=== PATIENT | male | born 1955 | race Caucasian/White ===

== ENCOUNTER 2021-06-12 21:47 | Emergency (ER) | payer BC, SELFPAY ==
--- NOTE | 2021-06-12 21:57 | DI.CT.S_ITS ---
PROCEDURE: CT HEAD/BRAIN WO CON INDICATIONS: head injury TECHNIQUE: Noncontrast 4.5 mm thick angled axial sections acquired from the foramen magnum to the vertex, with coronal and sagittal reformats. For radiation dose reduction, the following was used: automated exposure control, adjustment of mA and/or kV according to patient size. COMPARISON: None. FINDINGS: Image quality: Excellent. CSF spaces: Basal cisterns are patent. No extra-axial fluid collections. Ventricles are age-appropriate in size and shape. Brain: No midline shift. No intracranial masses or hemorrhage. Holloway-white matter interface is normal. Skull and face: Small right frontal scalp edema/hematoma. Calvarium and visualized facial bones are intact, without suspicious lesions. Sinuses: Visualized sinuses and mastoids are clear. IMPRESSION: Small right frontal scalp hematoma. No skull fracture. No acute intracranial abnormality. Dictated by: Jacek Bishop M.D. on 06/12/2021 at 22:19 Approved by: Jacek Bishop M.D. on 06/12/2021 at 22:20
[2021-06-12 21:58] VITALS: BP 139/85; PULSE 71; RESP 16; TEMP 36.4; O2SAT 98; BMI 33.5
--- NOTE | 2021-06-12 22:05 | DI.CT.S_ITS ---
PROCEDURE: CT CERVICAL SPINE WO CON INDICATIONS: fall TECHNIQUE: Noncontrast 3 mm thick sections acquired from the skull base to the T4 level. Sagittal and coronal reformats were then constructed. For radiation dose reduction, the following was used: automated exposure control, adjustment of mA and/or kV according to patient size. COMPARISON: None. FINDINGS: Image quality: Excellent. Bones: No acute fractures or dislocations. Visualized superior ribs are intact. Mild multilevel degenerative changes. Soft tissues: Prevertebral soft tissues are normal in thickness. No paravertebral hematomas. No apical pneumothoraces. IMPRESSION: Acute cervical spine fracture or subluxation. Dictated by: Jacek Bishop M.D. on 06/12/2021 at 22:21 Approved by: Jacek Bishop M.D. on 06/12/2021 at 22:23
[2021-06-12] MEDS: TET,DIPH,PERTUSS(ACELL),VAC/PF 0.5 ML SYRINGE IM (22:16)
--- NOTE | 2021-06-12 22:26 | ED_ITS ---
HPI - Head Injury General Chief complaint: Head Injury Stated complaint: FALL HIT HEAD HEAD INJURY Time Seen by Provider: 06/12/21 22:01 Source: patient Mode of arrival: Ambulatory History of Present Illness HPI Narrative: 65-year-old male nonsmoker and occasional drinker presents with his in the chief complaint of a ground level fall resulting in a large laceration on his forehead. They were at home when he had had a few drinks when he tripped and fell forward striking his head on the fireplace. He had no loss of consciousness and endorses full recall of the event. He has had no nausea or vomiting and is acting appropriate and at baseline per his . He denies any neck pain or other injury. He takes no blood thinners. Related Data Home Medications Medication Instructions Recorded Confirmed No Known Home Medications 06/12/21 06/12/21 Allergies Allergy/AdvReac Type Severity Reaction Status Date / Time No Known Drug Allergies Allergy Verified 06/12/21 22:04 Review of Systems Review of Systems Narrative: GENERAL: Denies chills, fatigue, malaise, fever, sweats. HEENT: Denies sinus pain, ear pain, sore throat, difficulty swallowing, dizziness. RESPIRATORY: Denies dyspnea, cough, wheezing, hemoptysis, sputum. CARDIOVASCULAR: Denies chest pain, palpitations, orthopnea, edema, GASTROINTESTINAL: Denies nausea, vomiting, abdominal pain, diarrhea, constipation, melena. : Denies dysuria, frequency, incontinence, hematuria, urinary retention. MUSCULOSKELETAL: denies weakness, joint pain, or bony pain SKIN: See HPI NEUROLOGIC: Denies weakness, headache, numbness, change in speech, confusion, seizures, incoordination. PSYCHIATRIC: No concerning psychosocial issues. 12 point review of systems is negative except for those stated above Patient History Social History Smoking Status: Never smoker Smoking Status: Never smoker alcohol intake frequency: 3 or more drinks per day Substance Use Type: does not use Exam Narrative Exam Narrative: GENERAL: [65] year old patient appears stated age. Well-developed patient, in mild distress. GCS 15 HEAD: Atraumatic. Normocephalic. EYES: Pupils equal round and reactive. Extraocular motions intact. No scleral icterus. No injection or drainage. ENT: Nose without bleeding, purulent drainage. Throat without erythema, tonsillar hypertrophy or exudate. Airway patent. NECK: Trachea midline. Non tender CARDIOVASCULAR: Regular rate and rhythm without murmurs, gallops, or rubs. RESPIRATORY: Clear to auscultation. Breath sounds equal bilaterally. No wheezes, rales, or rhonchi. GASTROINTESTINAL: Abdomen soft, non-tender, nondistended. EXTREMITIES: No edema or joint tenderness. BACK: Nontender without deformity or crepitance. No flank tenderness. NEURO: AOx3. SKIN: No rash or erythema of visible areas Initial Vital Signs Initial Vital Signs: Vital Signs Temperature 97.5 F L 06/12/21 21:58 Pulse Rate 71 06/12/21 21:58 Respiratory Rate 16 06/12/21 21:58 Blood Pressure 139/85 06/12/21 21:58 Pulse Oximetry 98 06/12/21 21:58 Procedures Laceration Repair Laceration 1: Site: scalp Side (If applicable): right Size (cm): 8 Description: irregular Depth: simple, single layer Local Anesthetic: lidocaine 1% and with epi Amount of anesthesia used (mL): 6 Pre-repair: wound explored and irrigated extensively Skin layer closed with: tremaine (And sutures) Size (cm): 5-0 Number of sutures: 7 Technique: simple, interrupted Subcutaneous layer closed with: vicryl Size: 4-0 Number of sutures: 3 Technique: simple, interrupted Course Orders Ordered: ED Orders 06/12/21 21:57 CT head/brain wo con Stat 06/12/21 22:05 CT cervical spine wo con Stat Discontinued Medications Diphtheria/Tetanus/Acell Pertussis (Tet,Diph,Pertuss(Acell),Vac/Pf 0.5 Ml Syr boris) 0.5 ml IM .ONCE ONE Stop: 06/12/21 21:59 Last Admin: 06/12/21 22:16 Dose: 0.5 ml Documented by: RALEIGH Ondansetron HCl (Ondansetron 4 Mg Odt Prepack) 1 bottle MISC SEEINSTR ONE Stop: 06/13/21 01:14 Last Admin: 06/13/21 01:26 Dose: 1 bottle Documented by: RALEIGH Vital Signs Vital signs: Vital Signs - 8 hr 06/13/21 01:31 Pulse Rate 79 Respiratory Rate 20 Blood Pressure 94/54 L Pulse Oximetry 97 MDM - Head Injury Imaging Data CT - cervical spine: Radiologist's Impression: [address] [address] [address] Scan Report Signed Patient: Abhijeet Ignacio MR#: [id number] : 1955 Acct:[id number] Age/Sex: 65 / M Date of Service: 06/12/21 Loc: ED Accession Number: [id number] ?? Procedure: CT cervical spine wo con Ordering Provider: Jaron Fernandes D.O. PROCEDURE:? CT CERVICAL SPINE WO CON ? INDICATIONS:? fall ? TECHNIQUE:? Noncontrast 3 mm thick sections acquired from the skull base to the T4 level.? Sagittal and coronal reformats were then constructed.? For radiation dose reduction, the following was used:? automated exposure control, adjustment of mA and/or kV according to patient size.? ? COMPARISON:? None. ? FINDINGS:? Image quality:? Excellent.? ? Bones:? No acute fractures or dislocations.? Visualized superior ribs are intact.? Mild multilevel degenerative changes. ? Soft tissues:? Prevertebral soft tissues are normal in thickness.? No paravertebral hematomas.? No apical pneumothoraces.? ? ? IMPRESSION:? Acute cervical spine fracture or subluxation. ? ? ? Dictated by: Jacek Bishop M.D. on 06/12/2021 at 22:21 ? ? Approved by: Jacek Bishop M.D. on 06/12/2021 at 22:23 ? CT scan - head: Radiologist's Impression: [address] [address] [address] Scan Report Signed Patient: Abhijeet Ignacio MR#: [id number] : 1955 Acct:[id number] Age/Sex: 65 / M Date of Service: 06/12/21 Loc: ED Accession Number: [id number] ?? Procedure: CT head/brain wo con Ordering Provider: Jaron Fernandes D.O. PROCEDURE:? CT HEAD/BRAIN WO CON ? INDICATIONS:? head injury ? TECHNIQUE:? Noncontrast 4.5 mm thick angled axial sections acquired from the foramen magnum to the vertex, with coronal and sagittal reformats.? For radiation dose reduction, the following was used:? automated exposure control, adjustment of mA and/or kV according to patient size.? ? COMPARISON:? None. ? FINDINGS:? Image quality:? Excellent.? ? CSF spaces:? Basal cisterns are patent.? No extra-axial fluid collections.? Ventricles are age-appropriate in size and shape.? ? Brain:? No midline shift.? No intracranial masses or hemorrhage.? Holloway-white matter interface is normal.? ? Skull and face:? Small right frontal scalp edema/hematoma.? Calvarium and visualized facial bones are intact, without suspicious lesions.? ? Sinuses:? Visualized sinuses and mastoids are clear.? ? IMPRESSION:? Small right frontal scalp hematoma.? No skull fracture.? No acute intracranial abnormality. ? ? Dictated by: Jacek Bishop M.D. on 06/12/2021 at 22:19 ? ? Approved by: Jacek Bishop M.D. on 06/12/2021 at 22:20 ? Discharge Plan Departure Patient Disposition: Home Clinical Impression: Fall, Laceration of head Instructions: DI for Laceration Repair of the Scalp Activity Restrictions/Additional Instructions: Please keep the wound clean and dry to the best of your ability. Please monitor for signs of infection such as redness to the skin or increasing pain. Have the sutures/tremaine removed by your doctor in about 7 days. If you are unable to get into your doctor, we would be happy to remove the sutures/tremaine in that same timeframe. Prescriptions: No Action No Known Home Medications 0RF
[2021-06-13] MEDS: ONDANSETRON 4 MG ODT PREPACK 1 BOTTLE MISC (01:26)
[2021-06-13 01:31] VITALS: BP 94/54; PULSE 79; RESP 20; O2SAT 97
== END 2021-06-13 01:32 | disposition home or self-care (01) ==
PROVIDERS: Emergency Provider Emergency Medicine
DX: S01.01XA Laceration without foreign body of scalp, initial encounter (principal); W01.0XXA Fall on same level from slipping, tripping and stumbling without subsequent striking against object, initial encounter; Y92.009 Unspecified place in unspecified non-institutional (private) residence as the place of occurrence of the external cause; Z23 Encounter for immunization
CPT/HCPCS: 12004; 70450; 72125; 90471; 99283; 99284; 90715

== ENCOUNTER 2024-01-14 21:43 | Emergency (ER) | payer SELFPAY ==
[2024-01-14 21:46] VITALS: BP 144/70; PULSE 93; RESP 16; O2SAT 95; BMI 35.9
[2024-01-14 22:03] VITALS: PULSE 91; RESP 16; O2SAT 93
--- NOTE | 2024-01-14 22:03 | DI.CT.S_ITS ---
PROCEDURE: CT CERVICAL SPINE WO CON INDICATIONS: fall etoh TECHNIQUE: Noncontrast 3 mm thick sections acquired from the skull base to the T4 level. Sagittal and coronal reformats were then constructed. For radiation dose reduction, the following was used: automated exposure control, adjustment of mA and/or kV according to patient size. COMPARISON: [facility], CT, CT CERVICAL SPINE WO CON, 06/12/2021, 22:09. FINDINGS: Image quality: Excellent. Bones: No fractures or dislocations. Visualized superior ribs are intact. Mild degenerative changes Soft tissues: Prevertebral soft tissues are normal in thickness. No paravertebral hematomas. No apical pneumothoraces. IMPRESSION: No fracture or traumatic malalignment Approved by: Tian Becker M.D. on 01/14/2024 at 22:08
--- NOTE | 2024-01-14 22:03 | DI.CT.S_ITS ---
PROCEDURE: CT HEAD/BRAIN WO CON INDICATIONS: fall etoh laceration TECHNIQUE: Noncontrast 4.5 mm thick angled axial sections acquired from the foramen magnum to the vertex, with coronal and sagittal reformats. For radiation dose reduction, the following was used: automated exposure control, adjustment of mA and/or kV according to patient size. COMPARISON: [facility], CT, CT HEAD/BRAIN WO CON, 06/12/2021, 22:09. FINDINGS: Image quality: Diagnostic. CSF spaces: Basal cisterns are patent. No extra-axial fluid collections. Ventricles are normal in size and shape. Brain: No midline shift. No intracranial masses or hemorrhage. Holloway-white matter interface is normal. Skull and face: Calvarium and visualized facial bones are intact, without suspicious lesions. Large left-sided scalp laceration. Sinuses: Visualized sinuses and mastoids are clear. IMPRESSION: Scalp laceration without skull fracture or intracranial hemorrhage Approved by: Tian Becker M.D. on 01/14/2024 at 22:03
[2024-01-14 22:30] VITALS: PULSE 76; O2SAT 96
--- NOTE | 2024-01-14 22:50 | PC.NURSE ---
pt 's face and head cleaned of dried blood laceration/avulsion mulu 6-7 in in length, oozing, Dr Ernandez in with internal sutures placed and then laceration stapled, pt tolerated well
[2024-01-14 23:00] VITALS: PULSE 41; RESP 16; O2SAT 93
[2024-01-14 23:11] VITALS: BP 110/62; PULSE 72; O2SAT 98
--- NOTE | 2024-01-14 23:16 | ED_ITS ---
HPI - Fall General Chief Complaint: Fall Stated Complaint: GLF Time Seen by Provider: 01/14/24 22:03 Source: patient Mode of arrival: EMS History of Present Illness HPI Narrative: Patient is a 68-year-old male with current alcohol intoxication presenting today with fall inside the house with significant laceration on scalp. Denies any LOC no nausea or vomiting not on anticoagulation is able to follow commands. Reports that he is in trouble with his Related Data Home Medications Medication Instructions Recorded Confirmed No Known Home Medications 06/12/21 06/12/21 Allergies Allergy/AdvReac Type Severity Reaction Status Date / Time No Known Drug Allergies Allergy Verified 06/12/21 22:04 Patient History Social History Smoking Status: Never smoker Smoking Status: Never smoker alcohol intake frequency: 3 or more drinks per day Substance Use Type: does not use Exam Initial Vital Signs Initial Vital Signs: Vital Signs Pulse Rate 93 H 01/14/24 21:46 Respiratory Rate 16 01/14/24 21:46 Blood Pressure 144/70 H 01/14/24 21:46 Pulse Oximetry 95 01/14/24 21:46 Oxygen Delivery Method Room Air 01/14/24 21:46 GENERAL: Intoxicated 68-year-old male HEENT: Head 13 cm laceration full-thickness down to dura with dural laceration about 5 cm bleeding controlled CARDIOVASCULAR: Regular rate and rhythm without murmurs, rubs or gallops. RESPIRATORY: Breath sounds equal bilaterally, no wheezes rales or rhonchi. ABDOMEN: Soft, nontender. Normoactive bowel sounds all 4 quadrants. No guarding or rebound. EXTREMITIES: Normal range of motion, no clubbing or edema. Neurovascularly intact NEUROLOGICAL: Alert and oriented x2.Normal gait and speech. Moving all extremities SKIN: Warm, dry, no laceration, no petechiae, no rashes or lesions. Procedures Laceration Repair Laceration 1: Site: scalp Side (If applicable): left Size (cm): 13.5 Description: linear Depth: simple, single layer (with dura involvement) Local Anesthetic: lidocaine 2% and with epi Skin layer closed with: tremaine (21) Subcutaneous layer closed with: vicryl Subcutaneous layer suture size: 4-0 Number of sutures: 3 Technique: other (mattress) Course Orders Ordered: ED Orders 01/14/24 22:03 CT cervical spine wo con Stat CT head/brain wo con Stat 01/14/24 23:59 CBC Auto Diff [Complete Blood Count AUTO DIFF] Stat CMP [Comprehensive Metabolic Panel] Stat ETOH [Ethanol (ETOH)] Stat Discontinued Medications Acetaminophen (Acetaminophen 325 Mg Tablet) 975 mg PO NOW ONE Stop: 01/15/24 05:55 Last Admin: 01/15/24 06:02 Dose: 975 mg Documented By: ALBA Vital Signs Vital signs: Vital Signs - 8 hr 01/14/24 23:00 01/14/24 23:11 01/14/24 23:11 Pulse Rate 41 L 72 Respiratory Rate 16 Blood Pressure 110/62 Pulse Oximetry 93 98 01/14/24 23:30 01/14/24 23:30 01/15/24 00:00 Pulse Rate 78 Respiratory Rate 16 Blood Pressure 136/66 125/61 Pulse Oximetry 97 01/15/24 00:00 01/15/24 00:30 01/15/24 00:30 Pulse Rate 77 76 Respiratory Rate Blood Pressure 113/65 Pulse Oximetry 97 94 01/15/24 01:00 01/15/24 01:00 01/15/24 01:30 Pulse Rate 82 72 Respiratory Rate Blood Pressure 107/63 Pulse Oximetry 95 94 01/15/24 01:30 01/15/24 02:00 01/15/24 02:00 Pulse Rate 77 Respiratory Rate Blood Pressure 114/69 134/74 Pulse Oximetry 97 01/15/24 02:30 01/15/24 02:30 01/15/24 03:00 Pulse Rate 76 Respiratory Rate 16 Blood Pressure 116/57 L 130/61 Pulse Oximetry 95 01/15/24 03:00 Pulse Rate 70 Respiratory Rate Blood Pressure Pulse Oximetry 97 MDM - Fall Lab Data 01/14/24 23:59 01/14/24 23:59 Labs: Lab Results 01/14/24 Range/Units 23:59 WBC 9.7 (4.5-11.0) X10^3/uL RBC 4.27 L (4.5-5.9) X10^6/uL Hgb 13.6 (13.5-17.5) g/dL Hct 41.1 (41-53) % MCV 96.3 (80-100) fL MCH 32.0 (26-34) PG MCHC 33.2 (30-36) % RDW 12.7 (11.6-14.8) % Plt Count 196 (150-400) X10^3/uL Neut % (Auto) 85.7 H (50-75) % Lymph % (Auto) 9.2 L (25-40) % [place] % (Auto) 4.2 (3-14) % Eos % (Auto) 0.4 L (2-4) % Baso % (Auto) 0.5 (0-2) % Neut # (Auto) 8300 H (8623-2457) /uL Lymph # (Auto) 900 L (4406-9381) /uL [place] # (Auto) 400 (0-900) /uL Eos # (Auto) 0 (0-450) /uL Baso # (Auto) 0 (0-100) /uL Sodium 140 (137-145) mmol/L Potassium 3.8 (3.4-5.1) mmol/L Chloride 106 (98-107) mmol/L Carbon Dioxide 23 (22-32) mmol/L BUN 21 H (9-20) mg/dL Creatinine 1.00 (0.66-1.25) mg/dL Estimated GFR > 60 (>60) mL/min BUN/Creatinine Ratio 21.0 (6-22) Glucose 113 H (80-110) mg/dL Calcium 8.9 (8.4-10.2) mg/dL Total Bilirubin 0.2 (0.2-1.3) mg/dL AST 36 (17-59) IU/L ALT 23 (<50) IU/L Alkaline Phosphatase 72 (38-126) U/L Total Protein 6.6 (6.3-8.2) g/dL Albumin 3.9 (3.5-5.0) g/dL Globulin 2.7 (1.7-4.1) g/dL Albumin/Globulin Ratio 1.4 (1.0-2.8) Ethyl Alcohol 279 H ( - 10) mg/dL Hep Bs Antigen Negative (NEGATIVE) s/c Hepatitis C Antibody Negative (NEGATIVE) s/c HIV 1&2 Ab/P24 Ag 4thGn Negative (NEGATIVE) Imaging Data CT scan - head: Radiologist's Impression: PROCEDURE: CT HEAD/BRAIN WO CON INDICATIONS: fall etoh laceration TECHNIQUE: Noncontrast 4.5 mm thick angled axial sections acquired from the foramen magnum to the vertex, with coronal and sagittal reformats. For radiation dose reduction, the following was used: automated exposure control, adjustment of mA and/or kV according to patient size. COMPARISON: [facility], CT, CT HEAD/BRAIN WO CON, 06/12/2021, 22:09. FINDINGS: Image quality: Diagnostic. CSF spaces: Basal cisterns are patent. No extra-axial fluid collections. Ventricles are normal in size and shape. Brain: No midline shift. No intracranial masses or hemorrhage. Holloway-white matter interface is normal. Skull and face: Calvarium and visualized facial bones are intact, without suspicious lesions. Large left-sided scalp laceration. Sinuses: Visualized sinuses and mastoids are clear. IMPRESSION: Scalp laceration without skull fracture or intracranial hemorrhage Approved by: Tian Becker M.D. on 01/14/2024 at 22:03 CT - cervical spine: Radiologist's Impression: PROCEDURE: CT CERVICAL SPINE WO CON INDICATIONS: fall etoh TECHNIQUE: Noncontrast 3 mm thick sections acquired from the skull base to the T4 level. Sagittal and coronal reformats were then constructed. For radiation dose reduction, the following was used: automated exposure control, adjustment of mA and/or kV according to patient size. COMPARISON: [facility], CT, CT CERVICAL SPINE WO CON, 06/12/2021, 22:09. FINDINGS: Image quality: Excellent. Bones: No fractures or dislocations. Visualized superior ribs are intact. Mild degenerative changes Soft tissues: Prevertebral soft tissues are normal in thickness. No paravertebral hematomas. No apical pneumothoraces. IMPRESSION: No fracture or traumatic malalignment Approved by: Tian Becker M.D. on 01/14/2024 at 22:08 [facility] Narrative Medical decision making narrative: Patient is 68-year-old male presenting today with significant head injury and laceration. Direct involved. Bleeding controlled. Blood work has been reviewed overall reassuring no leukocytosis, electrolytes stable creatinine 1.0, alcohol 279 Imaging repaired no intracranial hemorrhage no cervical fracture Unfortunately during repair I got accidental needle stick. Patient thinks fully consented to body fluid exposure which is negative. Patient is sleeping waiting for ride to go back to the [facility] Patient is ambulatory in the emergency department. He has a steady gait. He has been monitored in the ED for about 8 hours. He overall appears much better definitely sober. Offered to call him a taxi ride. He is calling his and would like to wait in the waiting room. He has been monitored for numerous hours he had a negative head CT, he is acting appropriate now and has a stable gait and no slurring of speech. Discharge Plan Departure Patient Disposition: Home Clinical Impression: Complex laceration of scalp, Alcohol intoxication Instructions: DI for Laceration Repair -- [place] Activity Restrictions/Additional Instructions: *You have been diagnosed with scalp laceration *What to do: Keep laceration clean and dry with soap and water. May apply antibiotic ointment. Have tremaine removed in about 10 days by primary care provider *Continue to take medications as directed Tylenol or Motrin as needed for pain *Follow up with your primary care provider in 2-3 days or call [phone] *Return to ER if you should have increasing redness swelling pain confusion nausea or any new, worsening or concerning symptoms Prescriptions: No Action No Known Home Medications Stand Alone Forms: Patient Portal/API
[2024-01-14 23:30] VITALS: BP 136/66; PULSE 78; RESP 16; O2SAT 97
[2024-01-15] VITALS (8 sets, daily range): BP systolic 107–134; BP diastolic 57–74; PULSE 70–98; RESP 16; O2SAT 94–97
[2024-01-15 00:22] LABS: Add Manual Diff / Slide Review NO; Basophils Absolute Auto 0 /uL (0-100); Basophils Percent Auto 0.5 % (0-2); Eosinophils Absolute Auto 0 /uL (0-450); Eosinophils Percent Auto 0.4 % (2-4); Hematocrit 41.1 % (41-53); Hemoglobin 13.6 g/dL (13.5-17.5); Lymphocytes Absolute Auto 900 /uL (1100-4500); Lymphocytes Percent Auto 9.2 % (25-40); Mean Corpuscular HGB Conc 33.2 % (30-36); Mean Corpuscular Volume 96.3 fL (80-100); Monocytes Absolute Auto 400 /uL (0-900); Monocytes Percent Auto 4.2 % (3-14); Neutrophils Absolute Auto 8300 /uL (1500-7000); Neutrophils Percent Auto 85.7 % (50-75); Platelet Count 196 X10^3/uL (150-400); Red Blood Cell Count 4.27 X10^6/uL (4.5-5.9); Red Cell Distribution Width 12.7 % (11.6-14.8); White Blood Cell Count 9.7 X10^3/uL (4.5-11.0)
[2024-01-15 00:25] LABS: Alanine Aminotransferase 23 IU/L (<50); Albumin 3.9 g/dL (3.5-5.0); Albumin Globulin Ratio 1.4 (1.0-2.8); Alkaline Phosphatase 72 U/L (38-126); Aspartate Aminotransferase 36 IU/L (17-59); Bilirubin Total 0.2 mg/dL (0.2-1.3); Blood Urea Nitrogen 21 mg/dL (9-20); Calcium 8.9 mg/dL (8.4-10.2); Carbon Dioxide 23 mmol/L (22-32); Chloride 106 mmol/L (98-107); Estimated Glomerular Filt Rate > 60 mL/min (>60); Globulin 2.7 g/dL (1.7-4.1); Glucose 113 mg/dL (80-110); HEMOLYSIS < 15 (0-50); Potassium 3.8 mmol/L (3.4-5.1); Sodium 140 mmol/L (137-145); Total Protein 6.6 g/dL (6.3-8.2)
[2024-01-15 00:35] LABS: Ethanol (ETOH) 279 mg/dL
[2024-01-15 01:18] LABS: Hepatitis B Surface Antigen NEGATIVE s/c (NEGATIVE)
[2024-01-15 01:32] LABS: HIV 1 & 2 Ab/Ag 4th Gen Combo NEGATIVE (NEGATIVE); Hep C Virus Ab w/Reflex Quant NEGATIVE s/c (NEGATIVE)
--- NOTE | 2024-01-15 03:11 | PC.NURSE ---
pt aao x 3 ambulatory to bathroom, bed changed and paper scrubs offered, but refused, pt given warm blankets and lights dimmed, pt resting waiting for am dc after [employer] start running
[2024-01-15] MEDS: ACETAMINOPHEN 325 MG TABLET 975 MG PO (06:02)
[2024-01-17 07:41] LABS: Hepatitis B Surf Ab Qualitativ Non Reactive (.)
== END 2024-01-15 06:46 | disposition home or self-care (01) ==
PROVIDERS: Emergency Provider Emergency Medicine
DX: S01.01XA Laceration without foreign body of scalp, initial encounter (principal); F10.129 Alcohol abuse with intoxication, unspecified; Y90.8 Blood alcohol level of 240 mg/100 ml or more; W18.30XA Fall on same level, unspecified, initial encounter
CPT/HCPCS: 12005; 36415; 70450; 72125; 80053; 80320; 85025; 99283; 99284